=== PATIENT | female | born 1995 | race Caucasian/White ===

== ENCOUNTER → 2016-06-28 | Outpatient (CLI) | payer BC ==
--- NOTE | 2016-06-28 13:28 | XR ---
EXAMINATION TYPE: XR chest 2V DATE OF EXAM: 06/28/2016 1:14 PM COMPARISON: NONE TECHNIQUE: PA and lateral views submitted. HISTORY: Chronic cough FINDINGS: The lungs are clear and there is no pneumothorax, pleural effusion, or focal pneumonia. IMPRESSION: 1. No acute process.
== END | disposition home or self-care (01) ==
LOC: RADXRMAIN 12:53
PROVIDERS: ATTEND Family Medicine
DX: R05 Cough (principal)
CPT/HCPCS: 71020